=== PATIENT | female | born 1975 | race Caucasian/White ===

== ENCOUNTER 2017-11-17 10:38 | Inpatient (IN) | payer OTHER ==
[~2017-11-17] VITALS: Ht 153.4 cm; Wt 58.1 kg
[2017-11-17] VITALS (19 sets, daily range): BP systolic 108–125; BP diastolic 68–84
[2017-11-17] MEDS ORDERED: SODIUM CHLORIDE 0.9% 1000ML 1,000 ML IV STA ×2 (10:54→10:57)
[2017-11-17] MEDS ORDERED: ONDANSETRON HCL INJ 2 MG/ML VIAL IV STA ×2 (10:54→12:24)
[2017-11-17] MEDS ORDERED: INSULIN REGULAR, HUMAN 100 UNIT/1 ML 3ML VIAL SQ ONE (11:00)
[2017-11-17 11:35] LABS: BASOPHILS # (AUTO) 0.1 (0.0-0.1); BASOPHILS % 0.5 % (0.0-1.0); HEMATOCRIT 45.3 % (34.2-44.1); HEMOGLOBIN 13.7 g/dL (12.0-16.0); LYMPHOCYTES % 15.4 % (18.0-39.1); MEAN CORPUSCULAR HEMOGLOBIN 27.1 pg (28-32); MEAN CORPUSCULAR HGB CONC 30.2 g/dL (31-35); MEAN CORPUSCULAR VOLUME 89.5 fL (81-99); MONOCYTES % 3.9 % (4.4-11.3); NEUTROPHILS # (AUTO) 19.9 (2.1-6.9); NEUTROPHILS % 76.7 % (38.7-80.0); PLATELET COUNT 496 x10e3/uL (140-360); RED BLOOD COUNT 5.06 x10e6/uL (3.6-5.1)
[2017-11-17 11:44] LABS: INR 1.16; PARTIAL THROMBOPLASTIN TIME 26.9 seconds (23.8-35.5); PROTHROMBIN TIME 13.9 seconds (11.9-14.5)
[2017-11-17 11:55] LABS: ALANINE AMINOTRANSFERASE 21 IU/L (0-55); ALBUMIN 4.2 g/dL (3.5-5.0); ALBUMIN/GLOBULIN RATIO 0.9 (0.8-2.0); ALKALINE PHOSPHATASE 105 IU/L (40-150); ANION GAP 36.6 mmol/L (8-16); BLOOD UREA NITROGEN 36 mg/dL (7-26); BUN/CREATININE RATIO 17 (6-25); CALCIUM 9.6 mg/dL (8.4-10.2); CHLORIDE 101 mmol/L (98-107); CREATININE, SERUM 2.08 mg/dL (0.57-1.11); EST GLOMERULAR FILTRATION RATE 26 ML/MIN (60-); MAGNESIUM 2.5 MG/DL (1.3-2.1); POTASSIUM 4.6 mmol/L (3.5-5.1); SODIUM 141 mmol/L (136-145)
[2017-11-17 11:57] LABS: GLUCOSE 662 mg/dL (74-118)
[2017-11-17 11:58] LABS: CARBON DIOXIDE 8 mmol/L (22-29)
[2017-11-17 12:00] LABS: CREATINE KINASE MB 1.3 ng/mL (0-5.0)
[2017-11-17] MEDS: SODIUM CHLORIDE 0.9% 1000ML 1,000 ML IV SCH ×5 (12:04→20:28)
--- NOTE | 2017-11-17 12:04 | Diagnostic Imaging Report ---
PROCEDURE:CHEST SINGLE (NOT PORTABLE) TECHNIQUE:Portable AP chest INDICATION:High blood sugar COMPARISON:None. FINDINGS: Lungs are clear and symmetrically inflated. No pleural effusions. Normal heart size, mediastinal contour, and pulmonary vasculature. Intact skeleton. CONCLUSION: Normal portable chest. Dictated by: Pedro Bishop M.D. on 11/17/2017 at 12:05 Electronically approved by: Pedro Bishop M.D. on 11/17/2017 at 12:05
[2017-11-17] MEDS ORDERED: INSULIN REGULAR, HUMAN 3ML VL 100 UNIT in SODIUM CHLORIDE 0.9% 100 ML 99 ML IV SCH ×2 (12:30)
[2017-11-17 12:31] LABS: ABG HCO3 5 mmol/L (23-28); ABG PCO2 16 mmHg (41-51); ABG PH 7.08 (7.31-7.41); ABG PO2 107 mmHg (80-105)
[2017-11-17] MEDS ORDERED: SODIUM BICARBONATE 8.4% INJ 50 ML SYR IV STA (12:32)
[2017-11-17] MEDS: INSULIN REGULAR, HUMAN 3ML VL 100 UNIT in SODIUM CHLORIDE 0.9% 100 ML 99 ML IV SCH ×2 (12:55)
[2017-11-17 14:03] LABS: LYMPHOCYTES % (MANUAL) 16 % (19-48); MONOCYTES % (MANUAL) 5 % (3.4-9.0); NEUTROPHILS % (MANUAL) 79 % (40-74); PLATELET ESTIMATE ADEQUATE; PLATELET MORPHOLOGY COMMENT NORMAL
[2017-11-17 14:04] LABS: RBC MORPHOLOGY COMMENT NORMAL
[2017-11-17 14:05] LABS: BILIRUBIN,URINE NEGATIVE (NEGATIVE); CLARITY,URINE CLEAR (CLEAR); COLOR,URINE YELLOW (YELLOW); KETONES,URINE 3+ (NEGATIVE); LEUKOCYTE ESTERASE ,URINE NEGATIVE (NEGATIVE); NITRITE,URINE NEGATIVE (NEGATIVE); URINE UROBILINOGEN 0.2 mg/dL (0.2 - 1)
[2017-11-17 14:05] LABS: ANISOCYTOSIS SLIGHT
[2017-11-17 14:06] LABS: PROTEIN,URINE DIPSTICK 1+ (NEGATIVE)
[2017-11-17] MEDS ORDERED: SODIUM CHLORIDE 0.9% 1000ML 2,000 ML IV ONE (14:15)
[2017-11-17 14:24] LABS: BACTERIA,URINE FEW /HPF; EPITHELIAL CELLS,URINE FEW /LPF; RBC,URINE 0-5 /HPF (0-5)
[2017-11-17] MEDS ORDERED: ONDANSETRON HCL INJ 2 MG/ML VIAL IV PRN (14:30)
[2017-11-17] MEDS ORDERED: SODIUM CHLORIDE FLUSH 10 ML SYR INJ PRN (14:30)
[2017-11-17] MEDS ORDERED: INSULIN DETEMIR 100 UNIT/ML PEN SQ PRN (14:30)
[2017-11-17] MEDS ORDERED: INSULIN REGULAR, HUMAN 3ML VL 1 UNIT in SODIUM CHLORIDE 0.9% 100 ML IV SCH ×2 (14:30)
[2017-11-17] MEDS ORDERED: POTASSIUM CHLORIDE 20MEQ/100ML 200 ML IV PRN (14:30)
[2017-11-17] MEDS ORDERED: MAGNESIUM SULF 1GRAM/DEXTROSE 100 ML IV PRN (14:30)
[2017-11-17] MEDS: DEXTROSE 5%/0.45% SOD CHL 1,000 ML IV SCH (14:54)
--- OUTSIDE RECORDS SUMMARY | 2017-11-17 15:11 | XMS REPORT ---
Author Author [facility] Address Unknown Phone Unavailable Care Team Providers Care Lesson Instructor Name Role Phone GEORGINA MORRIS Unavailable Unavailable Problems This patient has no known problems. Allergies, Adverse Reactions, Alerts This patient has no known allergies or adverse reactions. Medications This patient has no known medications. Results Test Description Test Time Test Comments Text Results Atomic Results Result Comments CHEST SINGLE (NOT PORTABLE) [place] [id number] Patient Name: ROX SU MR #: [id number] : 1975 Age/Sex: 42/F Req #: [id number] Adm Physician: Ordered by: MERLENE WAYNE LIQUID FERTILIZER SERVICER Report #: [id number] Location: ER Room/Bed: Procedure: [id number] DX/CHEST SINGLE (NOT PORTABLE) Exam Date: 11/17/17 Exam Time: 1115 REPORT STATUS: Signed PROCEDURE: CHEST SINGLE (NOT PORTABLE) TECHNIQUE: Portable AP chest INDICATION: High blood sugar COMPARISON: None. FINDINGS: Lungs are clear and symmetrically inflated. No pleural effusions. Normal heart size, mediastinal contour, and pulmonary vasculature. Intact skeleton. CONCLUSION: Normal portable chest. Dictated by: Luis Bishop M.D. on at 12:05 Electronically approved by: Luis Bishop M.D. on 11/17/2017 at 12:05 Dictated By: LUIS BISHOP MD [id number] Transcribed By: LIANA on 11/17/17 1205 COPY TO: MERLENE WAYNE NP
[2017-11-17 17:20] LABS: ALANINE AMINOTRANSFERASE 16 IU/L (0-55); ALBUMIN 3.3 g/dL (3.5-5.0); ALBUMIN/GLOBULIN RATIO 0.9 (0.8-2.0); ALKALINE PHOSPHATASE 76 IU/L (40-150); ANION GAP 20.1 mmol/L (8-16); BLOOD UREA NITROGEN 29 mg/dL (7-26); BUN/CREATININE RATIO 22 (6-25); CALCIUM 8.3 mg/dL (8.4-10.2); CARBON DIOXIDE 16 mmol/L (22-29); CHLORIDE 107 mmol/L (98-107); CREATININE, SERUM 1.34 mg/dL (0.57-1.11); EST GLOMERULAR FILTRATION RATE 43 ML/MIN (60-); GLUCOSE 281 mg/dL (74-118); MAGNESIUM 1.6 MG/DL (1.3-2.1); POTASSIUM 4.1 mmol/L (3.5-5.1); SODIUM 139 mmol/L (136-145)
[2017-11-17 17:31] LABS: BLOOD UREA NITROGEN 28 mg/dL (7-26); GLUCOSE 278 mg/dL (74-118); OSMOLALITY,SERUM 295 mOsm/kg (278-305); SODIUM 140 mmol/L (136-145)
--- NOTE | 2017-11-17 17:46 | History and Physical ---
PRIMARY CARE PROVIDER: In [place] and does not come here. CHIEF COMPLAINT: Nausea, vomiting and high sugar. HISTORY OF PRESENT ILLNESS: Ms. Caceres is a 42-year-old lady with type-2 diabetes since age 21. She is followed by an lye peel operator and has an insulin pump in place. She has had nausea and vomiting for the past couple of days, unable to keep any food down. She presents now with blood sugar of 600 in diabetic ketoacidosis. REVIEW OF SYSTEMS: She denies fever, chills or weight loss. She denies sinus congestion or sore throat. She denies chest pain or palpitations. She denies shortness of breath, wheezing or cough. She has had some generalized abdominal pain with nausea and vomiting. No diarrhea. No melena. No hematemesis. She denies dysuria or flank pain. She denies rash or pruritus. She denies joint pain or swelling. She denies headache, vertigo or loss of consciousness. She denies depression, agitation, homicidal or suicidal ideation. PAST MEDICAL HISTORY: Significant for type-2 diabetes since age 21 and hyperlipidemia. She is on an insulin pump and takes no other medication. She does have a history of in the past. No other surgery. ALLERGIES: SHE HAS NO KNOWN DRUG ALLERGIES. FAMILY HISTORY: Unremarkable. SOCIAL HISTORY: The patient is . [place] is her primary language. She is and here with her . She is a current daily smoker. Drinks rarely. Does not use illegal drugs and is generally independently functioning. PHYSICAL EXAMINATION PSYCHIATRIC: She is alert and oriented times 3 with normal mood and affect. CONSTITUTIONAL: She has a normal habitus, perhaps a little underweight, in no acute distress. VITAL SIGNS: Blood pressure 133/81. Pulse 128, down to 96 currently. Respiratory rate 24 initially, down to 17 now with an O2 sat of 100% on room air. Temperature 98.4. HEENT: Her head is atraumatic. Her eyes are anicteric. She has very poor dentition. Her oropharynx is clear. NECK: Supple with no mass or thyromegaly. LYMPHATIC SYSTEM: She has no palpable cervical, axillary or inguinal adenopathy. CARDIOVASCULAR: Heart has a regular rate and rhythm without murmur or extra heart sounds. She has no carotid bruit. She has no peripheral edema. She has weak dorsal pedal pulses. RESPIRATORY: Lungs are clear to auscultation and percussion with normal respiratory effort. GASTROINTESTINAL: Abdomen has mild diffuse tenderness without rebound or guarding. She has no hepatosplenomegaly or masses palpable. Normal bowel sounds are present. CUTANEOUS: Her skin is warm and dry to touch with no rash or skin breakdown. MUSCULOSKELETAL: Her joints are in normal alignment without erythema or swelling. She has no calf tenderness. NEUROLOGIC: Exam is nonfocal with intact cranial nerves and no motor or sensory deficits. DIAGNOSTIC STUDIES: Chest x-ray shows no acute disease. Her UA is clear. Lactic acid is 21.9, which is elevated. Troponin 0.002. Magnesium 2.5. Her chemistry shows normal electrolytes. CO2 is 8 for an anion gap of 36.6. Her creatinine is 2.08 and BUN 36 for a GFR of 26. Calcium 9.6. Glucose 662. Transaminases, bilirubin and alk phos are all normal. Blood gas showed a pH of 7.08, pCO2 of 16 and a pO2 of 107. Her CBC shows a white count of 26,000 with 77% neutrophils, 15% lymphocytes, 1% monocytes. Hemoglobin 13.7, hematocrit 45.3 and platelet count 496,000. IMPRESSION AND PLAN 1. Diabetic ketoacidosis. The patient is being admitted to the ICU on my DKA protocol. She can tolerate clear liquids for now. 2. Acute kidney injury. Will start aggressive IV hydration. 3. Systemic inflammatory response syndrome. Elevated white count and elevated heart rate. SIRS criteria. The patient's UA is clear. The systemic inflammatory response may be related to the DKA. Will monitor for now. Repeat lactic acid level. 4. For prophylaxis, the patient will be on Lovenox for deep venous thrombosis prophylaxis and Pepcid for gastrointestinal prophylaxis. Job#: [id number]
[2017-11-17] MEDS: FAMOTIDINE 20 MG TAB PO SCH (18:19)
[2017-11-17] MEDS: ENOXAPARIN SOD INJ 40 MG/0.4 ML SYR SC SCH (18:19)
[2017-11-17] MEDS: METOCLOPRAMIDE HCL 10 MG TAB PO SCH ×2 (18:19→21:40)
[2017-11-17] MEDS: MAGNESIUM SULF 1GRAM/DEXTROSE 100 ML IV PRN (18:34)
[2017-11-17 22:58] LABS: ANION GAP 10.1 mmol/L (8-16); CALCIUM 8.2 mg/dL (8.4-10.2); CREATININE, SERUM 1.05 mg/dL (0.57-1.11); MAGNESIUM 1.7 MG/DL (1.3-2.1); POTASSIUM 3.1 mmol/L (3.5-5.1)
[2017-11-18] VITALS (65 sets, daily range): BP systolic 88–124; BP diastolic 56–90
[2017-11-18] MEDS: SODIUM CHLORIDE 0.9% 1000ML 1,000 ML IV SCH ×3 (00:03→07:00)
[2017-11-18] MEDS: INSULIN REGULAR, HUMAN 3ML VL 100 UNIT in SODIUM CHLORIDE 0.9% 100 ML 99 ML IV SCH ×2 (00:10)
[2017-11-18] MEDS ORDERED: POTASSIUM CHLORIDE 20MEQ/100ML 100 ML IV ONE (00:15)
[2017-11-18] MEDS: DEXTROSE 5%/0.45% SOD CHL 1,000 ML IV SCH (00:20)
[2017-11-18] MEDS ORDERED: DEXTROSE 50% SYRINGE 50 ML IV ONE (02:18)
[2017-11-18] MEDS ORDERED: MAGNESIUM SULF 1GRAM/DEXTROSE 100 ML IV ONE (02:25)
[2017-11-18 02:51] LABS: ANION GAP 10.8 mmol/L (8-16); BLOOD UREA NITROGEN 16 mg/dL (7-26); BUN/CREATININE RATIO 17 (6-25); CALCIUM 8.6 mg/dL (8.4-10.2); CARBON DIOXIDE 21 mmol/L (22-29); CHLORIDE 112 mmol/L (98-107); CREATININE, SERUM 0.95 mg/dL (0.57-1.11); EST GLOMERULAR FILTRATION RATE > 60 ML/MIN (60-); MAGNESIUM 1.8 MG/DL (1.3-2.1); SODIUM 141 mmol/L (136-145)
[2017-11-18 02:54] LABS: GLUCOSE 36 mg/dL (74-118); POTASSIUM 2.8 mmol/L (3.5-5.1)
[2017-11-18] MEDS: MAGNESIUM SULF 1GRAM/DEXTROSE 100 ML IV PRN (02:56)
[2017-11-18] MEDS ORDERED: POTASSIUM CHLORIDE 20MEQ/100ML 200 ML ONE (03:29)
[2017-11-18 06:19] LABS: BASOPHILS % 0.2 % (0.0-1.0); EOSINOPHILS % 0.1 % (0.0-6.0); HEMATOCRIT 35.1 % (34.2-44.1); HEMOGLOBIN 11.1 g/dL (12.0-16.0); LYMPHOCYTES # (AUTO) 2.6 (1.0-3.2); MEAN CORPUSCULAR HEMOGLOBIN 26.9 pg (28-32); MEAN CORPUSCULAR HGB CONC 31.6 g/dL (31-35); MEAN CORPUSCULAR VOLUME 85.2 fL (81-99); MONOCYTES # (AUTO) 0.9 (0.2-0.8); MONOCYTES % 5.5 % (4.4-11.3); NEUTROPHILS # (AUTO) 13.6 (2.1-6.9); NEUTROPHILS % 78.7 % (38.7-80.0); PLATELET COUNT 300 x10e3/uL (140-360); RED BLOOD COUNT 4.12 x10e6/uL (3.6-5.1)
[2017-11-18 06:59] LABS: ALANINE AMINOTRANSFERASE 14 IU/L (0-55); ALBUMIN 3.2 g/dL (3.5-5.0); ALBUMIN/GLOBULIN RATIO 0.9 (0.8-2.0); ALKALINE PHOSPHATASE 69 IU/L (40-150); ANION GAP 10.5 mmol/L (8-16); BLOOD UREA NITROGEN 14 mg/dL (7-26); BUN/CREATININE RATIO 15 (6-25); CALCIUM 8.7 mg/dL (8.4-10.2); CARBON DIOXIDE 23 mmol/L (22-29); CHLORIDE 110 mmol/L (98-107); CHOL/HDL RATIO 2.5 (3.0-3.6); CHOLESTEROL 129 MD/DL (0-199); CREATININE, SERUM 0.93 mg/dL (0.57-1.11); EST GLOMERULAR FILTRATION RATE > 60 ML/MIN (60-); HDL CHOLESTEROL 51 MG/DL (40-60); LDL CHOLESTEROL 64 MG/DL (60-130); MAGNESIUM 2.3 MG/DL (1.3-2.1); PHOSPHORUS 1.1 MG/DL (2.3-4.7); POTASSIUM 3.5 mmol/L (3.5-5.1); SODIUM 140 mmol/L (136-145); TRIGLYCERIDES 69 MG/DL (0-149)
[2017-11-18 07:07] LABS: GLUCOSE 56 mg/dL (74-118)
[2017-11-18] MEDS: METOCLOPRAMIDE HCL 10 MG TAB PO SCH ×4 (07:30→20:56)
[2017-11-18] MEDS: FAMOTIDINE 20 MG TAB PO SCH ×2 (07:30→16:27)
[2017-11-18] MEDS ORDERED: SODIUM CHLORIDE 0.9% 1000ML 1,000 ML IV SCH (07:30)
[2017-11-18] MEDS ORDERED: INSULIN DETEMIR 100 UNIT/ML PEN SQ ONE (09:15)
[2017-11-18] MEDS ORDERED: DEXTROSE 50% SYRINGE 50 ML IV PRN (11:45)
[2017-11-18] MEDS: INSULIN REGULAR, HUMAN 100 UNIT/1 ML 3ML VIAL SQ SCH ×3 (11:56→20:56)
[2017-11-18 14:53] LABS: ANION GAP 10.9 mmol/L (8-16); CALCIUM 8.2 mg/dL (8.4-10.2); POTASSIUM 3.9 mmol/L (3.5-5.1)
[2017-11-18] MEDS: SODIUM CHLORIDE 0.45% 1,000 ML IV SCH (16:30)
[2017-11-18] MEDS: ENOXAPARIN SOD INJ 40 MG/0.4 ML SYR SC SCH (16:51)
[2017-11-18 22:52] LABS: ANION GAP 12.8 mmol/L (8-16); CALCIUM 8.8 mg/dL (8.4-10.2); CREATININE, SERUM 1.19 mg/dL (0.57-1.11); POTASSIUM 3.8 mmol/L (3.5-5.1)
[2017-11-18] MEDS ORDERED: INSULIN REGULAR, HUMAN 3ML VL 100 UNIT in SODIUM CHLORIDE 0.9% 100 ML 99 ML IV SCH ×2 (23:30)
[2017-11-18] MEDS ORDERED: INSULIN REGULAR, HUMAN 100 UNIT/1 ML 3ML VIAL ONE (23:45)
[2017-11-18] MEDS ORDERED: SODIUM CHLORIDE 0.9% 100 ML ONE (23:46)
[2017-11-19] VITALS (17 sets, daily range): BP systolic 95–137; BP diastolic 58–85
[2017-11-19] MEDS: SODIUM CHLORIDE 0.45% 1,000 ML IV SCH (03:58)
[2017-11-19] MEDS: INSULIN REGULAR, HUMAN 100 UNIT/1 ML 3ML VIAL SQ SCH ×2 (07:30→11:30)
[2017-11-19 07:51] LABS: BASOPHILS % 0.1 % (0.0-1.0); EOSINOPHILS % 0.5 % (0.0-6.0); HEMATOCRIT 29.4 % (34.2-44.1); HEMOGLOBIN 9.5 g/dL (12.0-16.0); LYMPHOCYTES # (AUTO) 2.2 (1.0-3.2); LYMPHOCYTES % 27.8 % (18.0-39.1); MEAN CORPUSCULAR HEMOGLOBIN 26.8 pg (28-32); MEAN CORPUSCULAR HGB CONC 32.3 g/dL (31-35); MEAN CORPUSCULAR VOLUME 82.8 fL (81-99); MONOCYTES # (AUTO) 0.4 (0.2-0.8); MONOCYTES % 5.6 % (4.4-11.3); NEUTROPHILS # (AUTO) 5.2 (2.1-6.9); NEUTROPHILS % 65.5 % (38.7-80.0); PLATELET COUNT 202 x10e3/uL (140-360); RED BLOOD COUNT 3.55 x10e6/uL (3.6-5.1); RED CELL DISTRIBUTION WIDTH 15.4 % (11.7-14.4)
[2017-11-19 08:06] LABS: ANION GAP 12.6 mmol/L (8-16); BLOOD UREA NITROGEN 9 mg/dL (7-26); BUN/CREATININE RATIO 13 (6-25); CALCIUM 8.3 mg/dL (8.4-10.2); CARBON DIOXIDE 22 mmol/L (22-29); CHLORIDE 108 mmol/L (98-107); EST GLOMERULAR FILTRATION RATE > 60 ML/MIN (60-); GLUCOSE 175 mg/dL (74-118); POTASSIUM 3.6 mmol/L (3.5-5.1); SODIUM 139 mmol/L (136-145)
[2017-11-19] MEDS: FAMOTIDINE 20 MG TAB PO SCH (08:50)
[2017-11-19] MEDS: METOCLOPRAMIDE HCL 10 MG TAB PO SCH ×2 (08:50→11:30)
[2017-11-19] MEDS ORDERED: INSULIN LISPRO 100 UNIT/1 ML 3ML VIAL SQ ONE (10:35)
[2017-11-19] MEDS ORDERED: INSULIN DETEMIR 100 UNIT/ML PEN SQ SCH (10:45)
--- NOTE | 2017-11-19 15:51 | Discharge Summary ---
Patient does not have a local PCP. Her property caretaker is in [place]. ADMITTING DIAGNOSIS 1. Diabetic ketoacidosis. 2. Hyperglycemia and uncontrolled type 2 diabetes. 3. Systemic inflammatory response syndrome. 4. Acute kidney injury. DISCHARGE DIAGNOSIS 1. Diabetic ketoacidosis. 2. Hyperglycemia and uncontrolled type 2 diabetes. 3. Systemic inflammatory response syndrome. 4. Acute kidney injury. BRIEF HISTORY: Ms. Caceres is a 42-year-old lady with type 2 diabetes since age 21, who is followed by an property caretaker and uses an insulin pump. She comes in with 2 to 3 days of nausea, vomiting and diarrhea, unable to keep anything down. Has not been taking her usual amounts of insulin either since she is not eating. HOSPITAL COURSE: The patient was found to be in diabetic ketoacidosis with a pH of 7.08, blood sugar of 662, bicarb of 8, anion gap of 36. She was treated with IV insulin drip, DKA protocol, 5 units an hour with IV fluids. Her DKA resolved in 24 hours. She was switched to an ADA diet with sliding-scale insulin, was given 40 units of Levemir. The patient was doing well. The nausea, vomiting and diarrhea had resolved. She was tolerating her diet. She was on sliding-scale insulin. Her blood sugar began creeping up to the 390 range, and the patient was started back on a non-DKA insulin drip protocol. This was discontinued on the day of discharge, and she was restarted on her insulin pump regimen. She was tolerating her ADA diet, and she will be discharged home to resume an ADA diet, to resume her insulin pump regimen and to follow up with her property caretaker within a week. LIO FRANCE MD Job#: [id number] EV
== END 2017-11-19 14:06 | disposition home or self-care (01) | DRG 637 ==
LOC: ER 10:38 → ERHOLD 15:08 → ICU 17:05 → MED/SURG 11-18 20:41 → ICU 11-19 00:08
PROVIDERS: ADMIT Internal Medicine; ATTEND Internal Medicine
DX: E11.11 Type 2 diabetes mellitus with ketoacidosis with coma (principal); R65.20 Severe sepsis without septic shock; N17.9 Acute kidney failure, unspecified; Z79.4 Long term (current) use of insulin; Z91.128 Patient's intentional underdosing of medication regimen for other reason
CPT/HCPCS: 36415; 36600; 71045; 80048; 80053; 80061; 81001; 82550; 82553; 82805; 82947; 82948; 83605; 83735; 84100; 84295; 84484; 84520; 85025; 85610; 85730; 93005; 99284; J1650; J2405; J3475; J3480; J7030; J7050; J7799